=== PATIENT | male | born 1990 | race African-American/Black ===

== ENCOUNTER 2017-04-10 12:26 | Emergency (ER) | payer MEDICAID ==
[~2017-04-10] VITALS: Ht 177.8 cm; Wt 68.0 kg
[2017-04-10 22:10] VITALS: BP 127/62
== END 2017-04-10 22:30 | disposition home or self-care (01) ==
LOC: ER 12:55
DX: J06.9 Acute upper respiratory infection, unspecified (principal); F12.10 Cannabis abuse, uncomplicated
CPT/HCPCS: 99283

== ENCOUNTER 2020-11-12 08:11 | Emergency (ER) | payer MEDICAID ==
[~2020-11-12] VITALS: Ht 177.8 cm; Wt 71.0 kg
[2020-11-12] MEDS ORDERED: BACITRACIN ZINC OINT UDPKT TOP ONE (08:30)
[2020-11-12] MEDS ORDERED: HYDROCODONE/ACETAMINOPHEN 5/325MG TABLET PO ONE (08:30)
[2020-11-12] MEDS ORDERED: LIDOCAINE HCL/EPINEPHRINE 1%-EPI 1:100,000 10 ML VIAL IJ ONE (08:30)
[2020-11-12] MEDS ORDERED: CEPH500C2 MT (08:39)
[2020-11-12] MEDS ORDERED: IBUP-2029 MT (08:40)
[2020-11-12 08:42] VITALS: BP 131/76
[2020-11-12] MEDS ORDERED: LIDOCAINE HCL/EPINEPHRINE 1%-EPI 1:100,000 20 ML VIAL INFIL ONE (09:00)
[2020-11-12] MEDS ORDERED: CEPHALEXIN 250MG CAPSULE PO ONE (09:45)
== END 2020-11-12 11:17 | disposition home or self-care (01) ==
LOC: ER 08:11
DX: S61.412A Laceration without foreign body of left hand, initial encounter (principal); F12.10 Cannabis abuse, uncomplicated; W45.8XXA Other foreign body or object entering through skin, initial encounter; Y93.89 Activity, other specified; Y92.018 Other place in single-family (private) house as the place of occurrence of the external cause
CPT/HCPCS: 12002; 70110; 71100; 99284; J3490

== ENCOUNTER 2020-11-17 18:22 | Emergency (ER) | payer MEDICAID ==
[~2020-11-17] VITALS: Ht 175.3 cm; Wt 69.0 kg
[~2020-11-17 18:22] MED LIST: CEPH500C2 MT; IBUP-2029 MT
[2020-11-17] MEDS ORDERED: CEPH500C2 MT (19:40)
[2020-11-17 19:47] VITALS: BP 112/81
== END 2020-11-17 19:49 | disposition home or self-care (01) ==
LOC: ER 18:22
DX: S61.412D Laceration without foreign body of left hand, subsequent encounter (principal); Z48.00 Encounter for change or removal of nonsurgical wound dressing; X58.XXXD Exposure to other specified factors, subsequent encounter
CPT/HCPCS: 99281

== ENCOUNTER 2020-12-12 17:49 | Emergency (ER) | payer MEDICAID ==
[~2020-12-12] VITALS: Ht 162.6 cm; Wt 68.0 kg
[2020-12-12 18:22] VITALS: BP 121/78
== END 2020-12-12 18:54 | disposition home or self-care (01) ==
LOC: ER 17:49
DX: Z48.02 Encounter for removal of sutures (principal)
CPT/HCPCS: 99281

== ENCOUNTER 2021-10-06 20:02 | Emergency (ER) | payer MEDICAID ==
[~2021-10-06] VITALS: Ht 180.3 cm; Wt 70.0 kg
[2021-10-06 20:04] VITALS: BP 114/74
[2021-10-06] MEDS ORDERED: ACETAMINOPHEN 325MG TABLET PO ONE (22:30)
== END 2021-10-06 23:24 | disposition left against medical advice (07) ==
LOC: ER 20:02
DX: S69.81XA Other specified injuries of right wrist, hand and finger(s), initial encounter (principal); F12.10 Cannabis abuse, uncomplicated; Y04.0XXA Assault by unarmed brawl or fight, initial encounter; Y93.89 Activity, other specified; Y92.89 Other specified places as the place of occurrence of the external cause
CPT/HCPCS: 73130; 99283

== ENCOUNTER 2023-01-25 12:35 | Emergency (ER) | payer MEDICAID, OTHER ==
[~2023-01-25] VITALS: Ht 180.3 cm; Wt 68.2 kg
[2023-01-25 12:41] VITALS: BP 118/79; PULSE 91; RESP 18; TEMP 98.3; O2SAT 99
[2023-01-25 15:19] LABS: CLARITY URINE CLEAR (CLEAR); COLOR URINE YELLOW (YELLOW); KETONES URINE TRACE (NEGATIVE); LEUKOCYTE ESTERASE URINE TRACE (NEGATIVE); NITRITE URINE NEGATIVE (NEGATIVE); OCCULT BLOOD URINE NEGATIVE (NEGATIVE); PH URINE 5.5 (4.5-8.0); PROTEIN URINE NEGATIVE (NEGATIVE); SPECIFIC GRAVITY URINE 1.022 (1.005-1.030)
[2023-01-30 15:10] LABS: NEISSERIA GONORRHOEAE NAA Negative (Negative)
== END 2023-01-25 15:50 | disposition left against medical advice (07) ==
LOC: ER 12:35
DX: Z53.21 Procedure and treatment not carried out due to patient leaving prior to being seen by health care provider (principal)
CPT/HCPCS: 81003; 87491; 87591; 99281